=== PATIENT | male | born 2000 | race Asian ===

== ENCOUNTER 2021-06-19 17:47 | Emergency (ER) | payer OTHER ==
[~2021-06-19] VITALS: Ht 180.3 cm; Wt 75.0 kg
[2021-06-19 17:53] VITALS: TEMP 98.2
[2021-06-19 18:56] VITALS: BP 152/78; PULSE 76
== END 2021-06-19 18:56 | disposition home or self-care (01) ==
LOC: COL.ER 17:47
DX: S01.111A Laceration without foreign body of right eyelid and periocular area, initial encounter (principal); W50.0XXA Accidental hit or strike by another person, initial encounter; Y93.67 Activity, basketball